=== PATIENT | male | born 1980 | race African-American/Black ===

== ENCOUNTER 2021-09-18 10:56 | Emergency (ER) | payer MEDICAID ==
[~2021-09-18] VITALS: Ht 182.9 cm; Wt 68.2 kg
[2021-09-18] MEDS ORDERED: ACYCLOVIR 200 MG CAPSULE PO ONE (12:00)
[2021-09-18] MEDS ORDERED: PredniSONE 20 MG TABLET PO ONE (12:00)
[2021-09-18 12:12] VITALS: BP 128/91
== END 2021-09-18 13:27 | disposition home or self-care (01) ==
LOC: EMS 11:02
DX: G51.0 Bell's palsy (principal); F12.90 Cannabis use, unspecified, uncomplicated
CPT/HCPCS: 99283; J7512